=== PATIENT | male | born 1960 | race Caucasian/White ===

== ENCOUNTER → 2016-10-14 | Outpatient (CLI) | payer BC ==
--- NOTE | 2016-10-14 13:31 | Diagnostic Imaging Report ---
PROCEDURE: CT sinuses without contrast TECHNIQUE: Multiple contiguous axial images were obtained through the sinuses without the use of intravenous contrast. Coronal and sagittal reformations were then performed. INDICATION: Chronic sinusitis. COMPARISON: None available. FINDINGS: The right maxillary sinus is negative. In the left maxillary antrum, a 2 cm polyp, a mucous retention cyst, or area of polypoid mucosal thickening is present. Mucosal thickening is seen at and along the medial anterior wall of the left maxillary sinus. The maxillary ostia are patent. There is no jazmin bullosa. The osseous nasal septum is deviated, convexity right. Ethmoid sinuses are negative. The sphenoid sinus shows no significant abnormality. Frontal sinuses are hypoplastic. The right frontal shows minimal mucous membrane thickening. The mastoids are normally aerated. The orbits are within normal limits. There is no osteolytic or osteoblastic lesion. The nasopharynx is negative. IMPRESSION: 1. Chronic left maxillary sinusitis. Dictated by: Dictated on workstation # [id number]
== END ==
LOC: RAD 12:47
PROVIDERS: ATTEND Family Medicine
DX: J32.0 Chronic maxillary sinusitis (principal)
CPT/HCPCS: 70486; 76376